=== PATIENT | male | born 1970 | race Caucasian/White ===

== ENCOUNTER 2019-03-20 15:10 | Observation (INO) | payer OTHER ==
--- NOTE | 2019-03-20 15:26 | EDM.PDOC ---
ED HPI GENERAL MEDICAL PROBLEM - General Chief Complaint: Lower Extremity Injury/Pain Stated Complaint: PAIN IN LEFT LEG FOR A WEEK Time Seen by Provider: 03/20/19 15:22 Source of Information: Reports: Patient History Limitations: Reports: No Limitations - History of Present Illness INITIAL COMMENTS - FREE TEXT/NARRATIVE: HISTORY AND PHYSICAL: History of present illness: Patient is a 48-year-old male who presents to the emergency room today with complaints of left thigh pain and swelling x 1 week. Approximately one month ago he had an injury where he felt like he had a quadricep tear. Over the past 2 weeks he has been lifting heavy cupboards and has doing strenuous physical activity. The past 1 week he has had left upper medial thigh pain which initially felt like a "pulled muscle". On Sunday he was seen at [facility] and had an ultrasound to rule out DVT; which was negative. He was placed on Bactrim DS at that time for an infected laceration (separate problem which he feels is improved). He is currently taking the antibiotic. Over the past several days the pain has increased, soft tissue swelling feels firm and warm to touch. He is concerned that it could be an abscess. He denies any new injury , trauma or falls. Denies any numbness, tingling or weakness of the extremity. Review of systems: As per history of present illness and below otherwise all systems reviewed and negative. Past medical history: As per history of present illness and as reviewed below otherwise noncontributory. Surgical history: As per history of present illness and as reviewed below otherwise noncontributory. Social history: See social history for further information Family history: As per history of present illness and as reviewed below otherwise noncontributory. Physical exam: General: Well-developed and well-nourished 48-year-old male. Alert and oriented. Nontoxic appearing and in no acute distress. HEENT: Atraumatic, normocephalic, pupils equal and reactive bilaterally, negative for conjunctival pallor or scleral icterus, mucous membranes moist, trachea midline. No drooling or trismus noted. No meningeal signs. No hot potato voice noted. Lungs: Clear to auscultation, breath sounds equal bilaterally. Heart: S1S2, regular rate and rhythm without overt murmur Abdomen: Soft, nondistended, nontender. Negative for masses. Negative for costovertebral tenderness. Skin: Palmar size area of erythema and firm to palpation. You are able to palpate almost a border around this area. It is warm and painful to touch. Otherwise skin is intact, warm, dry. No lesions or rashes noted. Extremities: Moves all extremities per self without difficulty or deficits, negative for cords or calf pain. Strong pedal pulses bilaterally. Neurovascular unremarkable. Neuro: Awake, alert, oriented. Cranial nerves II through XII unremarkable. Cerebellum unremarkable. Motor and sensory unremarkable throughout. Exam nonfocal. Notes: 174: Radiologist called with report on patient CT. She states there is fat stranding and skin thickening which is concerning for cellulitis. There is a possible deformity pushing into the femoral vein which is concerning for a DVT. She requests that an ultrasound be added onto his studies. No evidence of abscess or hematoma. Patient is aware of the CT findings. Patient was made aware of this added testing request. He states that he has been in so much pain that he would prefer to stay. Dr Dao/López was consulted on this case. He is agreeable to keeping patient for continued IV antibiotics. He is aware that the ultrasound results are pending. Diagnostics: CBC, CMP, Blood Culture, Lactic, CT of the right lower extremity, Venous doppler US Therapeutics: IV fluids, Morphine, Dilaudid, Vancomycin Impression: Cellulitis, left thigh Plan: Observation admission to Med/Surg Definitive disposition and diagnosis as appropriate pending reevaluation and review of above. Left Groin Pain Score (Numeric/FACES): 10 - Related Data Allergies Allergy/AdvReac Type Severity Reaction Status Date / Time No Known Allergies Allergy Verified 03/20/19 15:20 Home Meds: Home Meds Sulfamethoxazole/Trimethoprim [Bactrim Ds Tablet] 1 tab PO BID 03/20/19 [History ] Review of Systems - Review of Systems Review Of Systems: ROS reveals no pertinent complaints other than HPI. ED EXAM, GENERAL - Physical Exam Exam: See Below (See dictation) Course - Vital Signs Last Recorded V/S: Last Vital Signs Temp 97.6 F 03/20/19 15:21 Pulse 100 03/20/19 15:21 Resp 20 03/20/19 15:21 BP 149/99 H 03/20/19 15:21 Pulse Ox 97 03/20/19 15:21 - Orders/Labs/Meds Orders: Active Orders 24 hr Category Date Time Status Patient Status [ADT] Stat ADT 03/20/19 17:54 Ordered Cardiac Monitoring [RC] . DIRECTED Care 03/20/19 17:54 Ordered Venous Doppler Lwr Ext Lt [US] Stat Exams 03/20/19 17:43 Ordered CULTURE BLOOD [BC] Stat Lab 03/20/19 15:40 Received CULTURE BLOOD [BC] Stat Lab 03/20/19 15:48 Received Sodium Chloride 0.9% [Normal Saline] 1,000 ml Med 03/20/19 15:35 Active IV STAT Vancomycin 1 gm Med 03/20/19 17:54 Ordered Sodium Chloride 0.9% [Normal Saline] 250 ml IV ONETIME Blood Culture x2 Reflex Set [OM.PC] Stat Oth 03/20/19 15:35 Ordered Medication Orders Sodium Chloride (Normal Saline) 1,000 mls @ 200 mls/hr IV STAT ONE Stop: 03/20/19 20:34 Last Admin: 03/20/19 16:07 Dose: 200 mls/hr Vancomycin HCl 1 gm/ Sodium (Chloride) 250 mls @ 166 mls/hr IV ONETIME ONE Stop: 03/20/19 19:24 Labs: Laboratory Tests 03/20/19 03/20/19 03/20/19 Range/Units 15:40 15:40 15:40 WBC 14.46 H (4.0-11.0) K/uL RBC 5.03 (4.50-5.90) M/uL Hgb 15.6 (13.0-17.0) g/dL Hct 44.6 (38.0-50.0) % MCV 88.7 (80.0-98.0) fL MCH 31.0 (27.0-32.0) pg MCHC 35.0 (31.0-37.0) g/dL RDW Std Deviation 42.6 (28.0-62.0) fl RDW Coeff of Clara 13 (11.0-15.0) % Plt Count 333 (150-400) K/uL MPV 10.00 (7.40-12.00) fL Neut % (Auto) 86.4 H (48.0-80.0) % Lymph % (Auto) 5.5 L (16.0-40.0) % [place] % (Auto) 7.7 (0.0-15.0) % Eos % (Auto) 0.3 (0.0-7.0) % Baso % (Auto) 0.1 (0.0-1.5) % Neut # (Auto) 12.5 H (1.4-5.7) K/uL Lymph # (Auto) 0.8 (0.6-2.4) K/uL [place] # (Auto) 1.1 H (0.0-0.8) K/uL Eos # (Auto) 0.0 (0.0-0.7) K/uL Baso # (Auto) 0.0 (0.0-0.1) K/uL Nucleated RBC % 0.0 /100WBC Nucleated RBCs # 0 K/uL Lactate 1.4 (0.20-2.00) mmol/L Sodium 135 L (136-148) mmol/L Potassium 4.3 (3.5-5.1) mmol/L Chloride 98 (98-107) mmol/L Carbon Dioxide 25.5 (21.0-32.0) mmol/L BUN 16 (7.0-18.0) mg/dL Creatinine 1.1 (0.8-1.3) mg/dL Est Cr Clr Drug Dosing 85.57 mL/min Estimated GFR (MDRD) > 60.0 ml/min Glucose 111 H (74-106) mg/dL Calcium 9.3 (8.5-10.1) mg/dL Total Bilirubin 1.1 H (0.2-1.0) mg/dL AST 16 (15-37) IU/L ALT 33 (14-63) IU/L Alkaline Phosphatase 120 H (46-116) U/L Creatine Kinase 25 L (26-308) U/L Total Protein 8.3 H (6.4-8.2) g/dL Albumin 3.2 L (3.4-5.0) g/dL Globulin 5.1 H (2.6-4.0) g/dL Albumin/Globulin Ratio 0.6 L (0.9-1.6) Meds: Medications Generic Name Dose Route Start Last Admin Trade Name Freq PRN Reason Stop Dose Admin Sodium Chloride 1,000 mls @ 200 mls/hr 03/20/19 15:35 03/20/19 16:07 Normal Saline IV 03/20/19 20:34 200 mls/hr STAT ONE Administration Vancomycin HCl 1 gm/ Sodium 250 mls @ 166 mls/hr 03/20/19 17:54 Chloride IV 03/20/19 19:24 ONETIME ONE Discontinued Medications Generic Name Dose Route Start Last Admin Trade Name Jacekq PRN Reason Stop Dose Admin Iopamidol 83 ml 03/20/19 16:35 03/20/19 16:45 Isovue Multipack-370 (76%) IVPUSH 03/20/19 16:36 83 ml ONETIME STA Administration Morphine Sulfate 4 mg 03/20/19 15:35 03/20/19 16:07 Morphine IVPUSH 03/20/19 15:36 4 mg ONETIME ONE Administration Ondansetron HCl 4 mg 03/20/19 16:07 03/20/19 16:10 Zofran IVPUSH 03/20/19 16:08 4 mg ONETIME ONE Administration Departure - Departure Time of Disposition: 17:57 Disposition: Refer to Observation Clinical Impression: Cellulitis Qualifiers: Site of cellulitis: extremity Site of cellulitis of extremity: lower extremity Laterality: left Qualified Code(s): L03.116 - Cellulitis of left lower limb - Discharge Information Referrals: PCP,None [Primary Care Provider] - Forms: ED Department Discharge - My Orders Last 24 Hours: My Active Orders 03/20/19 15:35 Sodium Chloride 0.9% [Normal Saline] 1,000 ml IV STAT Blood Culture x2 Reflex Set [OM.PC] Stat 03/20/19 15:40 CULTURE BLOOD [BC] Stat 03/20/19 15:48 CULTURE BLOOD [BC] Stat 03/20/19 17:43 Venous Doppler Lwr Ext Lt [US] Stat 03/20/19 17:54 Patient Status [ADT] Stat Cardiac Monitoring [RC] . DIRECTED Vancomycin 1 gm Sodium Chloride 0.9% [Normal Saline] 250 ml IV ONETIME - Assessment/Plan Last 24 Hours: My Active Orders 03/20/19 15:35 Sodium Chloride 0.9% [Normal Saline] 1,000 ml IV STAT Blood Culture x2 Reflex Set [OM.PC] Stat 03/20/19 15:40 CULTURE BLOOD [BC] Stat 03/20/19 15:48 CULTURE BLOOD [BC] Stat 03/20/19 17:43 Venous Doppler Lwr Ext Lt [US] Stat 03/20/19 17:54 Patient Status [ADT] Stat Cardiac Monitoring [RC] . DIRECTED Vancomycin 1 gm Sodium Chloride 0.9% [Normal Saline] 250 ml IV ONETIME
[2019-03-20] MEDS ORDERED: Sodium Chloride 0.9% 1,000 ML IV ONE ×2 (15:35→16:05)
[2019-03-20] MEDS ORDERED: Morphine 4 MG/ML Syringe IVPUSH ONE (15:35)
[2019-03-20] MEDS ORDERED: Ondansetron 4 MG/2 ML SDV IVPUSH ONE (16:07)
[2019-03-20 16:18] LABS: BLOOD UREA NITROGEN,BUN 16 mg/dL (7.0-18.0); CARBON DIOXIDE,CO2 25.5 mmol/L (21.0-32.0); CHLORIDE,CL 98 mmol/L (98-107); GLUCOSE RANDOM 111 mg/dL (74-106); POTASSIUM,K 4.3 mmol/L (3.5-5.1); SODIUM,NA 135 mmol/L (136-148)
[2019-03-20] MEDS ORDERED: Iopamidol 755 MG/ML 500 ML Multipack Bottle IVPUSH STA (16:35)
--- NOTE | 2019-03-20 17:44 | CT ---
HISTORY: Left thigh abscess. TECHNIQUE: Intravenous contrast enhanced CT of the left thigh. 83 mL of Isovue-370 intravenous contrast administered. COMPARISON: No prior. FINDINGS: There is infiltration of the subcutaneous tissues of the anterior medial upper left thigh compatible with cellulitis. There is an area of more focal soft tissue infiltration present anteriorly present within the deep subcutaneous tissues and abutting the sartorius muscle as seen on image #86 series 201. This may relate to an area of phlegmon like change. There is no well-defined peripherally enhancing fluid collection per se. There are an increased number of left inguinal and anterior medial upper thigh lymph nodes which are likely reactive. No soft tissue gas. No deeper intramuscular collection. No bony destructive change to suggest osteomyelitis. Mild degenerative changes of the left hip. Infiltration of the anterior soft tissues of the knee. There is somewhat heterogeneous enhancement of the left femoral vein which may relate to inflow of unopacified blood. If there is clinical concern for DVT, ultrasound could be performed for further evaluation. IMPRESSION: 1. Cellulitis involving the anterior medial upper left thigh. Area of more focal soft tissue infiltration present anteriorly at the upper thigh level abutting the sartorius muscle which may indicate phlegmon like change. No well-defined peripherally enhancing fluid collection per se. 2. No soft tissue gas. 3. No osteomyelitis. 4. There is somewhat heterogeneous enhancement of the left femoral vein which may relate to inflow of unopacified blood. If there is clinical concern for DVT, ultrasound could be performed for further evaluation. Please note that all CT scans at this facility use dose modulation, iterative reconstruction, and/or weight-based dosing when appropriate to reduce radiation dose to as low as reasonably achievable. Dictated by Ramy Britt MD @ Mar 21 2019 7:28AM Signed by Dr. Ramy Britt @ Mar 21 2019 7:34AM
[2019-03-20] MEDS ORDERED: HYDROmorphone 1 MG/ML Syringe IVPUSH ONE (17:59)
[2019-03-20] MEDS ORDERED: Sodium Chloride 0.9% 250 ML ONE (18:04)
[2019-03-20] MEDS ORDERED: Vancomycin 1 GM SDV ONE (18:04)
[2019-03-20] MEDS ORDERED: Acetaminophen 325 MG Tab PO PRN (18:17)
[2019-03-20] MEDS ORDERED: Ondansetron 4 MG/2 ML SDV IVPUSH PRN (18:17)
[2019-03-20] MEDS ORDERED: Ibuprofen 800 MG Tab PO PRN (18:17)
[2019-03-20] MEDS ORDERED: Ondansetron 4 MG Tab.DIS PO PRN (18:17)
[2019-03-20] MEDS ORDERED: Temazepam 15 MG Cap PO PRN (18:17)
[2019-03-20] MEDS ORDERED: Ketorolac 30 MG/ML SDV IV PRN (18:17)
[2019-03-20] MEDS ORDERED: Morphine 10 MG/ML Syringe IVPUSH PRN (18:17)
--- NOTE | 2019-03-20 18:34 | PCM.HP ---
H&P History of Present Illness - General Date of Service: 03/20/19 Admit Problem/Dx: Admission Diagnosis/Problem Admission Diagnosis/Problem Cellulitis - History of Present Illness Initial Comments - Free Text/Narative: 48 y/o male here for left groin pain. Patient states that for the past 1 week he has been having worsening left groin pain, tender, warm and swollen. States that it started as a small pimple and then has progressed. He was recently seen in [place] where he was prescribed Bactrim. Has been taking it and swelling has mildly improved but still very painful. Has been taking tylenol and ibuprofen with no improvement. Sitting down he rates pain as 8/10 and worse when walking. Has been endorsing subjective fevers, chills. No vomiting, chest pain, dyspnea, abdominal pain, dysuria, discharge, diarrhea, blood in stool. Denies illicit drug use. He also states that his right knee has been feeling more painful and warm to touch. No history of trauma , surgeries to knees. He blames a fall from a ladder at work approximately 1 month ago for all his symptoms. Left Groin Pain Score (Numeric/FACES): 10 - Related Data Allergies/Adverse Reactions: Allergies Allergy/AdvReac Type Severity Reaction Status Date / Time No Known Allergies Allergy Verified 03/20/19 15:20 Home Medications: Home Meds Sulfamethoxazole/Trimethoprim [Bactrim Ds Tablet] 1 tab PO BID 03/20/19 [History ] Past Medical History HEENT History: Reports: None Cardiovascular History: Reports: Hypertension - Past Surgical History HEENT Surgical History: Reports: Tonsillectomy Cardiovascular Surgical History: Reports: None Social & Family History - Family History Family Medical History: Noncontributory - Tobacco Use Smoking Status *Q: Never Smoker Second Hand Smoke Exposure: No - Caffeine Use Caffeine Use: Reports: Energy Drinks - Recreational Drug Use Recreational Drug Use: No H&P Review of Systems - Review of Systems: Review Of Systems: ROS reveals no pertinent complaints other than HPI. Exam - Exam Exam: See Below - Vital Signs Vital Signs: Last Vital Signs Temp 36.4 C 03/20/19 15:21 Pulse 100 03/20/19 15:21 Resp 20 03/20/19 15:21 BP 149/99 H 03/20/19 15:21 Pulse Ox 97 03/20/19 15:21 Weight: 95.254 kg - Exam General: Alert, Oriented, Cooperative Lungs: Clear to Auscultation, Normal Respiratory Effort Cardiovascular: Regular Rate, Regular Rhythm GI/Abdominal Exam: Normal Bowel Sounds, Soft, Non-Tender, No Distention (Male) Exam: Other (There is an erythematous, endurated left area of skin in left groin region. Measuring approximately 10 cm in diameter. ) Extremities: Other (There is a red, warm area on right knee. tender to palpation.) - Patient Data Lab Results Last 24 hrs: Laboratory Results - last 24 hr 03/20/19 03/20/19 03/20/19 Range/Units 15:40 15:40 15:40 WBC 14.46 H (4.0-11.0) K/uL RBC 5.03 (4.50-5.90) M/uL Hgb 15.6 (13.0-17.0) g/dL Hct 44.6 (38.0-50.0) % MCV 88.7 (80.0-98.0) fL MCH 31.0 (27.0-32.0) pg MCHC 35.0 (31.0-37.0) g/dL RDW Std Deviation 42.6 (28.0-62.0) fl RDW Coeff of Clara 13 (11.0-15.0) % Plt Count 333 (150-400) K/uL MPV 10.00 (7.40-12.00) fL Neut % (Auto) 86.4 H (48.0-80.0) % Lymph % (Auto) 5.5 L (16.0-40.0) % [place] % (Auto) 7.7 (0.0-15.0) % Eos % (Auto) 0.3 (0.0-7.0) % Baso % (Auto) 0.1 (0.0-1.5) % Neut # (Auto) 12.5 H (1.4-5.7) K/uL Lymph # (Auto) 0.8 (0.6-2.4) K/uL [place] # (Auto) 1.1 H (0.0-0.8) K/uL Eos # (Auto) 0.0 (0.0-0.7) K/uL Baso # (Auto) 0.0 (0.0-0.1) K/uL Nucleated RBC % 0.0 /100WBC Nucleated RBCs # 0 K/uL Lactate 1.4 (0.20-2.00) mmol/L Sodium 135 L (136-148) mmol/L Potassium 4.3 (3.5-5.1) mmol/L Chloride 98 (98-107) mmol/L Carbon Dioxide 25.5 (21.0-32.0) mmol/L BUN 16 (7.0-18.0) mg/dL Creatinine 1.1 (0.8-1.3) mg/dL Est Cr Clr Drug Dosing 85.57 mL/min Estimated GFR (MDRD) > 60.0 ml/min Glucose 111 H (74-106) mg/dL Calcium 9.3 (8.5-10.1) mg/dL Total Bilirubin 1.1 H (0.2-1.0) mg/dL AST 16 (15-37) IU/L ALT 33 (14-63) IU/L Alkaline Phosphatase 120 H (46-116) U/L Creatine Kinase 25 L (26-308) U/L Total Protein 8.3 H (6.4-8.2) g/dL Albumin 3.2 L (3.4-5.0) g/dL Globulin 5.1 H (2.6-4.0) g/dL Albumin/Globulin Ratio 0.6 L (0.9-1.6) Result Diagrams: 03/20/19 15:40 03/20/19 15:40 Problem List Initiated/Reviewed/Updated: Yes Orders Last 24hrs: Active Orders 24 hr Category Date Time Status Patient Status [ADT] Stat ADT 03/20/19 17:54 Active Cardiac Monitoring [RC] . DIRECTED Care 03/20/19 17:54 Hold Oxygen Therapy [RC] PRN Care 03/20/19 18:17 Ordered Up ad Melody [RC] ASDIRECTED Care 03/20/19 18:17 Ordered VTE/DVT Education [RC] PER UNIT ROUTINE Care 03/20/19 18:17 Ordered Vital Signs [RC] Q4H Care 03/20/19 18:17 Ordered Regular Diet [DIET] Diet 03/20/19 Dinner Ordered Venous Doppler Lwr Ext Lt [US] Stat Exams 03/20/19 17:43 Ordered CULTURE BLOOD [BC] Stat Lab 03/20/19 15:40 Received CULTURE BLOOD [BC] Stat Lab 03/20/19 15:48 Received Acetaminophen [Tylenol] Med 03/20/19 18:17 Ordered 650 mg PO Q4H PRN Enoxaparin [Lovenox] Med 03/20/19 18:30 Ordered 40 mg SUBCUT Q24H Ibuprofen [Motrin] Med 03/20/19 18:17 Ordered 800 mg PO Q6H PRN Ketorolac [Toradol] Med 03/20/19 18:17 Ordered 30 mg IV Q6H PRN Morphine Med 03/20/19 18:17 Ordered 2 mg IVPUSH Q2H PRN Ondansetron [Zofran ODT] Med 03/20/19 18:17 Ordered 4 mg PO Q4H PRN Ondansetron [Zofran] Med 03/20/19 18:17 Ordered 4 mg IVPUSH Q4H PRN Sodium Chloride 0.9% [Normal Saline] 1,000 ml Med 03/20/19 15:35 Active IV STAT Temazepam [Restoril] Med 03/20/19 18:17 Ordered 15 mg PO BEDTIME PRN Vancomycin 1 gm Med 03/20/19 17:54 Active Sodium Chloride 0.9% [Normal Saline] 250 ml IV ONETIME Blood Culture x2 Reflex Set [OM.PC] Stat Oth 03/20/19 15:35 Ordered Resuscitation Status Routine Resus Stat 03/20/19 18:17 Ordered Medication Orders Acetaminophen (Tylenol) 650 mg PO Q4H PRN PRN Reason: Pain (Mild 1-3)/fever Enoxaparin Sodium (Lovenox) 40 mg SUBCUT Q24H SALOMÓN Sodium Chloride (Normal Saline) 1,000 mls @ 200 mls/hr IV STAT ONE Stop: 03/20/19 20:34 Last Admin: 03/20/19 16:07 Dose: 200 mls/hr Vancomycin HCl 1 gm/ Sodium (Chloride) 250 mls @ 166 mls/hr IV ONETIME ONE Stop: 03/20/19 19:24 Last Admin: 03/20/19 18:20 Dose: 166 mls/hr Ibuprofen (Motrin) 800 mg PO Q6H PRN PRN Reason: Pain (mild 1-3) Ketorolac Tromethamine (Toradol) 30 mg IV Q6H PRN PRN Reason: Pain (moderate 4-6) Morphine Sulfate (Morphine) 2 mg IVPUSH Q2H PRN PRN Reason: Pain (severe 7-10) Stop: 03/21/19 18:24 Ondansetron HCl (Zofran Odt) 4 mg PO Q4H PRN PRN Reason: nausea, able to take PO Ondansetron HCl (Zofran) 4 mg IVPUSH Q4H PRN PRN Reason: Nausea Temazepam (Restoril) 15 mg PO BEDTIME PRN PRN Reason: Sleep Assessment/Plan Comment:: A: 1. Left groin cellulitis 2. Leukocytosis due to above P: 1. Will start Vancomycin for left groin cellulitis. Pending left groin U/S to r/ o DVT. Pain control. dispo: 1-2 days.
--- NOTE | 2019-03-20 20:28 | US ---
INDICATION: Left lower extremity swelling TECHNIQUE: Ultrasound venous duplex lower left extremity. Compression venous exam was performed using ibarra-scale, color Doppler, and spectral Doppler analysis. COMPARISON: None FINDINGS: Sonographic imaging demonstrates the left common femoral, deep femoral, superficial femoral, popliteal, posterior tibial and greater saphenous and the contralateral right common femoral veins to be fully compressible with normal color Doppler blood flow. The proximal left superficial femoral vein is not well visualized. 3.3 centimeter left inguinal lymph node. IMPRESSION: No evidence of deep venous thrombosis left lower extremity. The proximal superficial femoral vein is not well visualized. 3.3 centimeter left inguinal lymph node. Dictated by Tim Schumacher MD @ 03/20/2019 8:26:57 PM Dictated by: Tim Schumacher MD @ 03/20/2019 20:27:02 (Electronically Signed)
[2019-03-20] MEDS: Enoxaparin 40 MG/0.4 ML Syringe SUBCUT SCH (20:35)
[2019-03-21] MEDS ORDERED: VANCOMYCIN/WATER FOR INJ (PEG) 1.5 GM in Premix Bag 1 BAG IV SCH ×2 (08:00→12:00)
[2019-03-21 08:28] LABS: BLOOD UREA NITROGEN,BUN 15 mg/dL (7.0-18.0); CHLORIDE,CL 103 mmol/L (98-107); GLUCOSE RANDOM 153 mg/dL (74-106); POTASSIUM,K 4.3 mmol/L (3.5-5.1); SODIUM,NA 136 mmol/L (136-148)
--- NOTE | 2019-03-21 10:05 | PCM.PN ---
- General Info Date of Service: 03/21/19 Subjective Update: no acute events overnight. Pain, erythema improving. Afebrile. - Patient Data Vitals - Most Recent: Last Vital Signs Temp 36.1 C 03/21/19 07:00 Pulse 80 03/21/19 07:00 Resp 16 03/21/19 07:00 BP 137/83 03/21/19 07:00 Pulse Ox 92 L 03/21/19 07:00 Weight - Most Recent: 103.328 kg I&O - Last 24 Hours: Intake & Output 03/20/19 03/21/19 03/21/19 22:59 06:59 14:59 Intake Total 0 Output Total 825 Balance -825 Lab Results Last 24 Hours: Laboratory Results - last 24 hr 03/20/19 03/20/19 03/20/19 Range/Units 15:40 15:40 15:40 WBC 14.46 H (4.0-11.0) K/uL RBC 5.03 (4.50-5.90) M/uL Hgb 15.6 (13.0-17.0) g/dL Hct 44.6 (38.0-50.0) % MCV 88.7 (80.0-98.0) fL MCH 31.0 (27.0-32.0) pg MCHC 35.0 (31.0-37.0) g/dL RDW Std Deviation 42.6 (28.0-62.0) fl RDW Coeff of Clara 13 (11.0-15.0) % Plt Count 333 (150-400) K/uL MPV 10.00 (7.40-12.00) fL Neut % (Auto) 86.4 H (48.0-80.0) % Lymph % (Auto) 5.5 L (16.0-40.0) % [place] % (Auto) 7.7 (0.0-15.0) % Eos % (Auto) 0.3 (0.0-7.0) % Baso % (Auto) 0.1 (0.0-1.5) % Neut # (Auto) 12.5 H (1.4-5.7) K/uL Lymph # (Auto) 0.8 (0.6-2.4) K/uL [place] # (Auto) 1.1 H (0.0-0.8) K/uL Eos # (Auto) 0.0 (0.0-0.7) K/uL Baso # (Auto) 0.0 (0.0-0.1) K/uL Nucleated RBC % 0.0 /100WBC Nucleated RBCs # 0 K/uL Lactate 1.4 (0.20-2.00) mmol/L Sodium 135 L (136-148) mmol/L Potassium 4.3 (3.5-5.1) mmol/L Chloride 98 (98-107) mmol/L Carbon Dioxide 25.5 (21.0-32.0) mmol/L BUN 16 (7.0-18.0) mg/dL Creatinine 1.1 (0.8-1.3) mg/dL Est Cr Clr Drug Dosing 85.57 mL/min Estimated GFR (MDRD) > 60.0 ml/min Glucose 111 H (74-106) mg/dL Calcium 9.3 (8.5-10.1) mg/dL Total Bilirubin 1.1 H (0.2-1.0) mg/dL AST 16 (15-37) IU/L ALT 33 (14-63) IU/L Alkaline Phosphatase 120 H (46-116) U/L Creatine Kinase 25 L (26-308) U/L Total Protein 8.3 H (6.4-8.2) g/dL Albumin 3.2 L (3.4-5.0) g/dL Globulin 5.1 H (2.6-4.0) g/dL Albumin/Globulin Ratio 0.6 L (0.9-1.6) 03/21/19 03/21/19 Range/Units 07:49 07:49 WBC 10.27 (4.0-11.0) K/uL RBC 4.35 L (4.50-5.90) M/uL Hgb 13.1 (13.0-17.0) g/dL Hct 38.8 (38.0-50.0) % MCV 89.2 (80.0-98.0) fL MCH 30.1 (27.0-32.0) pg MCHC 33.8 (31.0-37.0) g/dL RDW Std Deviation 43.1 (28.0-62.0) fl RDW Coeff of Clara 13 (11.0-15.0) % Plt Count 277 (150-400) K/uL MPV 9.80 (7.40-12.00) fL Neut % (Auto) 86.8 H (48.0-80.0) % Lymph % (Auto) 5.6 L (16.0-40.0) % [place] % (Auto) 6.8 (0.0-15.0) % Eos % (Auto) 0.6 (0.0-7.0) % Baso % (Auto) 0.2 (0.0-1.5) % Neut # (Auto) 8.9 H (1.4-5.7) K/uL Lymph # (Auto) 0.6 (0.6-2.4) K/uL [place] # (Auto) 0.7 (0.0-0.8) K/uL Eos # (Auto) 0.1 (0.0-0.7) K/uL Baso # (Auto) 0.0 (0.0-0.1) K/uL Nucleated RBC % 0.0 /100WBC Nucleated RBCs # 0 K/uL Lactate (0.20-2.00) mmol/L Sodium 136 (136-148) mmol/L Potassium 4.3 (3.5-5.1) mmol/L Chloride 103 (98-107) mmol/L Carbon Dioxide 26.0 (21.0-32.0) mmol/L BUN 15 (7.0-18.0) mg/dL Creatinine 0.9 (0.8-1.3) mg/dL Est Cr Clr Drug Dosing 104.58 mL/min Estimated GFR (MDRD) > 60.0 ml/min Glucose 153 H (74-106) mg/dL Calcium 8.6 (8.5-10.1) mg/dL Total Bilirubin 0.7 (0.2-1.0) mg/dL AST 11 L (15-37) IU/L ALT 26 (14-63) IU/L Alkaline Phosphatase 96 (46-116) U/L Creatine Kinase (26-308) U/L Total Protein 6.8 (6.4-8.2) g/dL Albumin 2.5 L (3.4-5.0) g/dL Globulin 4.3 H (2.6-4.0) g/dL Albumin/Globulin Ratio 0.6 L (0.9-1.6) Med Orders - Current: Current Medications Acetaminophen (Tylenol) 650 mg PO Q4H PRN PRN Reason: Pain (Mild 1-3)/fever Enoxaparin Sodium (Lovenox) 40 mg SUBCUT Q24H [facility] Last Admin: 03/20/19 20:35 Dose: 40 mg Vancomycin HCl 1.5 gm/ Premix 300 mls @ 199.188 mls/hr IV Q12H [facility] Ibuprofen (Motrin) 800 mg PO Q6H PRN PRN Reason: Pain (mild 1-3) Ketorolac Tromethamine (Toradol) 30 mg IV Q6H PRN PRN Reason: Pain (moderate 4-6) Morphine Sulfate (Morphine) 2 mg IVPUSH Q2H PRN PRN Reason: Pain (severe 7-10) Stop: 03/21/19 18:24 Ondansetron HCl (Zofran Odt) 4 mg PO Q4H PRN PRN Reason: nausea, able to take PO Ondansetron HCl (Zofran) 4 mg IVPUSH Q4H PRN PRN Reason: Nausea Temazepam (Restoril) 15 mg PO BEDTIME PRN PRN Reason: Sleep Vancomycin HCl (Pharmacy To Dose - Vancomycin) 1 dose .XX ASDIRECTED [facility] Discontinued Medications Hydromorphone HCl (Dilaudid) 1 mg IVPUSH ONETIME ONE Stop: 03/20/19 18:00 Last Admin: 03/20/19 18:14 Dose: 1 mg Sodium Chloride (Normal Saline) 1,000 mls @ 200 mls/hr IV STAT ONE Stop: 03/20/19 20:34 Last Admin: 03/20/19 16:07 Dose: 200 mls/hr Vancomycin HCl 1 gm/ Sodium (Chloride) 250 mls @ 166 mls/hr IV ONETIME ONE Stop: 03/20/19 19:24 Last Admin: 03/20/19 18:20 Dose: 166 mls/hr Sodium Chloride (Normal Saline) 1,000 mls @ 999 mls/hr IV .Bolus ONE Stop: 03/20/19 17:05 Last Admin: 03/20/19 18:01 Dose: 999 mls/hr Sodium Chloride (Normal Saline) Confirm Administered Dose 250 mls @ as directed .ROUTE .STK-MED ONE Stop: 03/20/19 18:05 Last Admin: 03/20/19 18:15 Dose: Not Given Vancomycin HCl 1.5 gm/ Premix 300 mls @ 199.188 mls/hr IV Q12H [facility] Iopamidol (Isovue Multipack-370 (76%)) 83 ml IVPUSH ONETIME STA Stop: 03/20/19 16:36 Last Admin: 03/20/19 16:45 Dose: 83 ml Morphine Sulfate (Morphine) 4 mg IVPUSH ONETIME ONE Stop: 03/20/19 15:36 Last Admin: 03/20/19 16:07 Dose: 4 mg Ondansetron HCl (Zofran) 4 mg IVPUSH ONETIME ONE Stop: 03/20/19 16:08 Last Admin: 03/20/19 16:10 Dose: 4 mg Vancomycin HCl (Vancomycin) Confirm Administered Dose 1 gm .ROUTE .STK-MED ONE Stop: 03/20/19 18:05 Last Admin: 03/20/19 18:15 Dose: Not Given - Exam General: Alert, Oriented, Cooperative, No Acute Distress Lungs: Clear to Auscultation, Normal Respiratory Effort Cardiovascular: Regular Rate, Regular Rhythm GI/Abdominal Exam: Normal Bowel Sounds, Soft, Non-Tender Extremities: Other (Left groin- less erythematous but endurated. tender with palpation.) - Problem List Review Problem List Initiated/Reviewed/Updated: Yes - My Orders Last 24 Hours: My Active Orders 03/20/19 18:17 Oxygen Therapy [RC] PRN Up ad Melody [RC] ASDIRECTED VTE/DVT Education [RC] PER UNIT ROUTINE Vital Signs [RC] Q4H Acetaminophen [Tylenol] 650 mg PO Q4H PRN Ibuprofen [Motrin] 800 mg PO Q6H PRN Ketorolac [Toradol] 30 mg IV Q6H PRN Morphine 2 mg IVPUSH Q2H PRN Ondansetron [Zofran ODT] 4 mg PO Q4H PRN Ondansetron [Zofran] 4 mg IVPUSH Q4H PRN Temazepam [Restoril] 15 mg PO BEDTIME PRN Resuscitation Status Routine 03/20/19 18:30 Enoxaparin [Lovenox] 40 mg SUBCUT Q24H 03/20/19 Dinner Regular Diet [DIET] 03/21/19 07:45 Pharmacy to Dose - Vancomycin 1 dose .XX ASDIRECTED 03/21/19 12:00 Vancomycin/Water For Inj (Peg) [Vancomycin 1.5 GM/300 ML Bag] 1.5 gm Premix Bag 1 bag IV Q12H 03/22/19 23:00 VANCOMYCIN TROUGH [CHEM] Timed - Plan Plan:: A: 1. Left groin cellulitis, improving P: Continue with IV vancomycin. Pain control. Apply ice pack and encourage ambulation. dispo: likely dc tomorrow
--- NOTE | 2019-03-21 18:23 | PCM.DCSUM1 ---
<Oswaldo Jack - Last Filed: 03/21/19 18:19> Discharge Summary - Hospital Course Free Text/Narrative:: 48 y/o male presenting to the ER with left groin pain. Found to have cellulitis in left groin area. He had a WBC 14,000. No fevers. No abscess seen on CT of left groin. He was started on IV Vancomycin. His WBC normalized. He remained afebrile. No nausea. He was able to tolerate walking. The area of cellulitis was receding and becoming less warm. He was feeling better later in the afternoon and was requesting to go home. He was discharged home on Clindamycin 300 mg PO TID and Keflex 250 mg PO TID for 7 days. He was instructed to follow- up with his PCP next week. - Discharge Data Discharge Date: 03/21/19 Discharge Disposition: Home, Self-Care 01 Condition: Good - Patient Instructions Diet: Regular Diet as Tolerated, Drink 8-10+ Glasses/Day Activity: Apply Ice, As Tolerated Notify Provider of: Fever, Increased Pain, Swelling and Redness, Drainage, Nausea and/or Vomiting - Discharge Plan *PRESCRIPTION DRUG MONITORING PROGRAM REVIEWED*: Not Applicable *COPY OF PRESCRIPTION DRUG MONITORING REPORT IN PATIENT BRENNAN: Not Applicable Prescriptions/Med Rec: Cephalexin [Keflex] 250 mg PO TID 7 Days #21 capsule Clindamycin HCl 300 mg PO TID 7 Days #21 capsule Home Medications: Home Meds Acetaminophen [Acetaminophen Extra Strength] 500 mg PO ASDIRECTED PRN 03/20/19 [ History] Ibuprofen [Advil Liqui-Gels] 400 mg PO ASDIRECTED PRN 03/20/19 [History] Cephalexin [Keflex] 250 mg PO TID 7 Days #21 capsule 03/21/19 [Rx] Clindamycin HCl 300 mg PO TID 7 Days #21 capsule 03/21/19 [Rx] Patient Handouts: Clindamycin capsules, Cellulitis, Adult, [id number], Cephalexin tablets or capsules Referrals: [facility] [Outside] Oswaldo Jack MD [Resident] - (call [facility] on Sunday at [phone] to set up an appointment to see Dr Newberry nex week. ) - Discharge Summary/Plan Comment DC Time >30 min.: No - Patient Data Vitals - Most Recent: Last Vital Signs Temp 36.6 C 03/21/19 16:00 Pulse 75 03/21/19 12:00 Resp 18 03/21/19 16:00 BP 141/79 H 03/21/19 16:00 Pulse Ox 94 L 03/21/19 16:00 Weight - Most Recent: 103.328 kg I&O - Last 24 hours: Intake & Output 03/21/19 03/21/19 03/21/19 06:59 14:59 22:59 Intake Total 0 1950 Output Total 825 1979 Balance -825 -30 Lab Results - Last 24 hrs: Laboratory Results - last 24 hr 03/21/19 03/21/19 Range/Units 07:49 07:49 WBC 10.27 (4.0-11.0) K/uL RBC 4.35 L (4.50-5.90) M/uL Hgb 13.1 (13.0-17.0) g/dL Hct 38.8 (38.0-50.0) % MCV 89.2 (80.0-98.0) fL MCH 30.1 (27.0-32.0) pg MCHC 33.8 (31.0-37.0) g/dL RDW Std Deviation 43.1 (28.0-62.0) fl RDW Coeff of Clara 13 (11.0-15.0) % Plt Count 277 (150-400) K/uL MPV 9.80 (7.40-12.00) fL Neut % (Auto) 86.8 H (48.0-80.0) % Lymph % (Auto) 5.6 L (16.0-40.0) % [place] % (Auto) 6.8 (0.0-15.0) % Eos % (Auto) 0.6 (0.0-7.0) % Baso % (Auto) 0.2 (0.0-1.5) % Neut # (Auto) 8.9 H (1.4-5.7) K/uL Lymph # (Auto) 0.6 (0.6-2.4) K/uL [place] # (Auto) 0.7 (0.0-0.8) K/uL Eos # (Auto) 0.1 (0.0-0.7) K/uL Baso # (Auto) 0.0 (0.0-0.1) K/uL Nucleated RBC % 0.0 /100WBC Nucleated RBCs # 0 K/uL Sodium 136 (136-148) mmol/L Potassium 4.3 (3.5-5.1) mmol/L Chloride 103 (98-107) mmol/L Carbon Dioxide 26.0 (21.0-32.0) mmol/L BUN 15 (7.0-18.0) mg/dL Creatinine 0.9 (0.8-1.3) mg/dL Est Cr Clr Drug Dosing 104.58 mL/min Estimated GFR (MDRD) > 60.0 ml/min Glucose 153 H (74-106) mg/dL Calcium 8.6 (8.5-10.1) mg/dL Total Bilirubin 0.7 (0.2-1.0) mg/dL AST 11 L (15-37) IU/L ALT 26 (14-63) IU/L Alkaline Phosphatase 96 (46-116) U/L Total Protein 6.8 (6.4-8.2) g/dL Albumin 2.5 L (3.4-5.0) g/dL Globulin 4.3 H (2.6-4.0) g/dL Albumin/Globulin Ratio 0.6 L (0.9-1.6) ALLIE Results - Last 24 hrs: Microbiology 03/20/19 15:48 Aerobic Blood Culture - Preliminary Blood - Venous - Lab Draw NO GROWTH AFTER 1 DAY Anaerobic Blood Culture - Preliminary NO GROWTH AFTER 1 DAY 03/20/19 15:40 Aerobic Blood Culture - Preliminary Blood - Venous NO GROWTH AFTER 1 DAY Anaerobic Blood Culture - Preliminary NO GROWTH AFTER 1 DAY Med Orders - Current: Current Medications Acetaminophen (Tylenol) 650 mg PO Q4H PRN PRN Reason: Pain (Mild 1-3)/fever Enoxaparin Sodium (Lovenox) 40 mg SUBCUT Q24H [facility] Last Admin: 03/20/19 20:35 Dose: 40 mg Vancomycin HCl 1.5 gm/ Premix 300 mls @ 199.188 mls/hr IV Q12H [facility] Last Admin: 03/21/19 13:47 Dose: 199.188 mls/hr Ibuprofen (Motrin) 800 mg PO Q6H PRN PRN Reason: Pain (mild 1-3) Ketorolac Tromethamine (Toradol) 30 mg IV Q6H PRN PRN Reason: Pain (moderate 4-6) Morphine Sulfate (Morphine) 2 mg IVPUSH Q2H PRN PRN Reason: Pain (severe 7-10) Stop: 03/21/19 18:24 Ondansetron HCl (Zofran Odt) 4 mg PO Q4H PRN PRN Reason: nausea, able to take PO Ondansetron HCl (Zofran) 4 mg IVPUSH Q4H PRN PRN Reason: Nausea Temazepam (Restoril) 15 mg PO BEDTIME PRN PRN Reason: Sleep Vancomycin HCl (Pharmacy To Dose - Vancomycin) 1 dose .XX ASDIRECTED [facility] Discontinued Medications Hydromorphone HCl (Dilaudid) 1 mg IVPUSH ONETIME ONE Stop: 03/20/19 18:00 Last Admin: 03/20/19 18:14 Dose: 1 mg Sodium Chloride (Normal Saline) 1,000 mls @ 200 mls/hr IV STAT ONE Stop: 03/20/19 20:34 Last Admin: 03/20/19 16:07 Dose: 200 mls/hr Vancomycin HCl 1 gm/ Sodium (Chloride) 250 mls @ 166 mls/hr IV ONETIME ONE Stop: 03/20/19 19:24 Last Admin: 03/20/19 18:20 Dose: 166 mls/hr Sodium Chloride (Normal Saline) 1,000 mls @ 999 mls/hr IV .Bolus ONE Stop: 03/20/19 17:05 Last Admin: 03/20/19 18:01 Dose: 999 mls/hr Sodium Chloride (Normal Saline) Confirm Administered Dose 250 mls @ as directed .ROUTE .STK-MED ONE Stop: 03/20/19 18:05 Last Admin: 03/20/19 18:15 Dose: Not Given Vancomycin HCl 1.5 gm/ Premix 300 mls @ 199.188 mls/hr IV Q12H [facility] Iopamidol (Isovue Multipack-370 (76%)) 83 ml IVPUSH ONETIME STA Stop: 03/20/19 16:36 Last Admin: 03/20/19 16:45 Dose: 83 ml Morphine Sulfate (Morphine) 4 mg IVPUSH ONETIME ONE Stop: 03/20/19 15:36 Last Admin: 03/20/19 16:07 Dose: 4 mg Ondansetron HCl (Zofran) 4 mg IVPUSH ONETIME ONE Stop: 03/20/19 16:08 Last Admin: 03/20/19 16:10 Dose: 4 mg Vancomycin HCl (Vancomycin) Confirm Administered Dose 1 gm .ROUTE .STK-MED ONE Stop: 03/20/19 18:05 Last Admin: 03/20/19 18:15 Dose: Not Given <Jac Dawn - Last Filed: 03/24/19 19:44> - Patient Data Vitals - Most Recent: Last Vital Signs Temp 36.9 C 03/21/19 18:20 Pulse 91 03/21/19 18:20 Resp 16 03/21/19 18:20 BP 134/79 03/21/19 18:20 Pulse Ox 94 L 03/21/19 18:20 ALLIE Results - Last 24 hrs: Microbiology 03/20/19 15:48 Aerobic Blood Culture - Preliminary Blood - Venous - Lab Draw NO GROWTH AFTER 4 DAYS Anaerobic Blood Culture - Preliminary NO GROWTH AFTER 4 DAYS 03/20/19 15:40 Aerobic Blood Culture - Preliminary Blood - Venous NO GROWTH AFTER 4 DAYS Anaerobic Blood Culture - Preliminary NO GROWTH AFTER 4 DAYS Med Orders - Current: Current Medications Discontinued Medications Acetaminophen (Tylenol) 650 mg PO Q4H PRN PRN Reason: Pain (Mild 1-3)/fever Enoxaparin Sodium (Lovenox) 40 mg SUBCUT Q24H [facility] Last Admin: 03/21/19 18:58 Dose: Not Given Hydromorphone HCl (Dilaudid) 1 mg IVPUSH ONETIME ONE Stop: 03/20/19 18:00 Last Admin: 03/20/19 18:14 Dose: 1 mg Sodium Chloride (Normal Saline) 1,000 mls @ 200 mls/hr IV STAT ONE Stop: 03/20/19 20:34 Last Admin: 03/20/19 16:07 Dose: 200 mls/hr Vancomycin HCl 1 gm/ Sodium (Chloride) 250 mls @ 166 mls/hr IV ONETIME ONE Stop: 03/20/19 19:24 Last Admin: 03/20/19 18:20 Dose: 166 mls/hr Sodium Chloride (Normal Saline) 1,000 mls @ 999 mls/hr IV .Bolus ONE Stop: 03/20/19 17:05 Last Admin: 03/20/19 18:01 Dose: 999 mls/hr Sodium Chloride (Normal Saline) Confirm Administered Dose 250 mls @ as directed .ROUTE .STK-MED ONE Stop: 03/20/19 18:05 Last Admin: 03/20/19 18:15 Dose: Not Given Vancomycin HCl 1.5 gm/ Premix 300 mls @ 199.188 mls/hr IV Q12H [facility] Vancomycin HCl 1.5 gm/ Premix 300 mls @ 199.188 mls/hr IV Q12H [facility] Last Admin: 03/21/19 13:47 Dose: 199.188 mls/hr Ibuprofen (Motrin) 800 mg PO Q6H PRN PRN Reason: Pain (mild 1-3) Iopamidol (Isovue Multipack-370 (76%)) 83 ml IVPUSH ONETIME STA Stop: 03/20/19 16:36 Last Admin: 03/20/19 16:45 Dose: 83 ml Ketorolac Tromethamine (Toradol) 30 mg IV Q6H PRN PRN Reason: Pain (moderate 4-6) Morphine Sulfate (Morphine) 4 mg IVPUSH ONETIME ONE Stop: 03/20/19 15:36 Last Admin: 03/20/19 16:07 Dose: 4 mg Morphine Sulfate (Morphine) 2 mg IVPUSH Q2H PRN PRN Reason: Pain (severe 7-10) Stop: 03/21/19 18:24 Ondansetron HCl (Zofran) 4 mg IVPUSH ONETIME ONE Stop: 03/20/19 16:08 Last Admin: 03/20/19 16:10 Dose: 4 mg Ondansetron HCl (Zofran Odt) 4 mg PO Q4H PRN PRN Reason: nausea, able to take PO Ondansetron HCl (Zofran) 4 mg IVPUSH Q4H PRN PRN Reason: Nausea Temazepam (Restoril) 15 mg PO BEDTIME PRN PRN Reason: Sleep Vancomycin HCl (Vancomycin) Confirm Administered Dose 1 gm .ROUTE .STK-MED ONE Stop: 03/20/19 18:05 Last Admin: 03/20/19 18:15 Dose: Not Given Vancomycin HCl (Pharmacy To Dose - Vancomycin) 1 dose .XX ASDIRECTED [facility] - Free Text/Narrative Note: I have evaluated the patient. I have discussed findings and treatment plan with resident. I agree with the assessment and plan outlined in the following note.
[2019-03-21] MEDS: Enoxaparin 40 MG/0.4 ML Syringe SUBCUT SCH (18:58)
== END 2019-03-21 18:40 | disposition home or self-care (01) ==
LOC: MW.ED 15:10 → MW.MS 18:05
PROVIDERS: ADMIT Internal Medicine; ATTEND Internal Medicine
DX: L03.314 Cellulitis of groin (principal); I10 Essential (primary) hypertension
CPT/HCPCS: 36415; 73701; 80053; 82550; 83605; 85025; 87040; 93971; 96361; 96365; 96366; 96375; 99284; J1170; J1650; J2270; J2405; J3370; J7040; J7050; Q9967; 96372; 96376; G0378